=== PATIENT | male | born 1990 | race Caucasian/White ===

== ENCOUNTER 2019-07-22 04:24 | Emergency (ER) | payer OTHER ==
[2019-07-22 05:29] LABS: Absolute Lymphocytes (CBC) 1.2 K/uL (0.7-4.9); Basophils % 0.2 % (0-1.3); Hematocrit 40.5 % (39.6-49.0); MPV 9.4 fL (7.6-11.3); RBC Red Blood Cell Count 4.48 M/uL (4.33-5.43)
[2019-07-22 05:33] LABS: Protime INR 1.03
[2019-07-22 05:48] LABS: ALT/SGPT 62 U/L (12-78); AST/SGOT 28 U/L (15-37); Albumin 4.2 g/dL (3.4-5.0); Alkaline Phosphatase 72 U/L (45-117); BUN Blood Urea Nitrogen 14 mg/dL (7-18); Bicarbonate 27 mmol/L (21-32); Bilirubin Direct < 0.1 mg/dL (0-0.2); Bilirubin Total 0.3 mg/dL (0.2-1.0); CKMB Creatine Kinase MB 1.8 ng/mL (0.3-3.6); Creatine Phosphokinase 185 U/L (39-308); Glucose Level 91 mg/dL (74-106); Lipase 137 U/L (73-393); Magnesium 2.4 mg/dL (1.8-2.4); Potassium 4.2 mmol/L (3.5-5.1); Protein, Total 7.2 g/dL (6.4-8.2); Sodium Level 139 mmol/L (136-145)
[2019-07-22] MEDS ORDERED: LIDOCAINE 1% MPF 5 ML VIAL ONE (06:28)
[2019-07-22] MEDS ORDERED: IBUPROFEN 400 MG TAB ONE (06:51)
--- NOTE | 2019-07-22 06:57 | ER ---
Nurse's Notes [facility] Name: Tay Forbes Age: 29 yrs Sex: Male : 1990 Arrival Date: 07/22/2019 Time: 04:25 Bed 7 Private MD: Diagnosis: Seizure;Chin Laceration Presentation: 07/22 04:25 Presenting complaint: EMS states: pt had witnessed seizure while walking. pt with lac ak1 under his chin, no bleeding noted. pt A\T\OX4 at this time. pt ambulated to EMS stretcher. pt with hx of seizures, does not take medications for seizures. EMS FSBG 126. Transition of care: patient was not received from another setting of care. Onset of symptoms was July 22, 2019. Risk Assessment: Do you want to hurt yourself or someone else? Patient reports no desire to harm self or others. Initial Sepsis Screen: Does the patient meet any 2 criteria? No. Patient's initial sepsis screen is negative. Does the patient have a suspected source of infection? No. Patient's initial sepsis screen is negative. Care prior to arrival: None. 04:25 Method Of Arrival: EMS: [facility] ak1 04:25 Acuity: BLADIMIR 3 ak1 Triage Assessment: 04:28 General: Appears in no apparent distress. Behavior is calm, cooperative. Pain: Denies ak1 pain. EENT: No signs and/or symptoms were reported regarding the EENT system. Neuro: Level of Consciousness is awake, alert, obeys commands, Oriented to person, place, time, situation, Appropriate for age Moves all extremities. Cardiovascular: No deficits noted. Respiratory: Airway is patent Respiratory effort is even, unlabored, Respiratory pattern is regular. GI: No signs and/or symptoms were reported involving the gastrointestinal system. : No signs and/or symptoms were reported regarding the genitourinary system. Derm: Wound noted submental area. Musculoskeletal: No signs and/or symptoms reported regarding the musculoskeletal system. Historical: - Allergies: 04:28 No Known Allergies; ak1 - Home Meds: 04:28 None [Active]; ak1 - PMHx: 04:28 Seizures; ak1 - PSHx: 04:28 left hand sx; ak1 - Immunization history:: Adult Immunizations unknown. - Social history:: Smoking status: Patient/guardian denies using tobacco. - Ebola Screening: : No symptoms or risks identified at this time. Screenin:29 Abuse screen: Denies threats or abuse. Denies injuries from another. Nutritional ak1 screening: No deficits noted. Tuberculosis screening: No symptoms or risk factors identified. Fall Risk None identified. Assessment: 04:30 Reassessment: Patient appears in no apparent distress at this time. No changes from ak1 previously documented assessment. Patient and/or family updated on plan of care and expected duration. Pain level reassessed. Patient is alert, oriented x 3, equal unlabored respirations, skin warm/dry/pink. see triage assessment. General: Appears in no apparent distress. Behavior is calm, cooperative. 05:22 Reassessment: Patient appears in no apparent distress at this time. No changes from ak1 previously documented assessment. Patient and/or family updated on plan of care and expected duration. Pain level reassessed. Patient is alert, oriented x 3, equal unlabored respirations, skin warm/dry/pink. 06:38 Reassessment: Patient appears in no apparent distress at this time. Patient and/or ak1 family updated on plan of care and expected duration. Pain level reassessed. Patient is alert, oriented x 3, equal unlabored respirations, skin warm/dry/pink. no seizure activity noted while in ER7. Vital Signs: 04:28 BP 116 / 84; Pulse 88; Resp 16; Temp 97.0(TE); Pulse Ox 98% on R/A; Weight 86.18 kg ak1 (R); Height 6 ft. 0 in. (182.88 cm) (R); Pain 0/10; 06:40 BP 119 / 81; Pulse 79; Resp 20; Temp 97.6(TE); Pulse Ox 98% on R/A; Pain 0/10; ak1 04:28 Body Mass Index 25.77 (86.18 kg, 182.88 cm) ak1 [place] Coma Score: 04:28 Eye Response: spontaneous(4). Verbal Response: oriented(5). Motor Response: obeys ak1 commands(6). Total: 15. ED Course: 04:25 Patient arrived in ED. ak1 04:27 Triage completed. ak1 04:28 Arm band placed on Patient placed in an exam room, on a stretcher, on pulse oximetry, ak1 Patient notified of wait time. 04:29 Patient has correct armband on for positive identification. Bed in low position. Call ak1 light in reach. Side rails up X2. Seizure precautions initiated. Pulse ox on. NIBP on. 04:29 Maintain EMS IV. Dressing intact. Site clean \T\ dry. Gauge \T\ site: 20g left hand. ak 1 04:30 Isaura Lawson, ELIZABETH is Primary Nurse. ak1 04:31 Aren Palmer MD is Attending Physician. tw4 05:03 CT Head Brain wo Cont In Process Unspecified. EDMS 06:39 Assist provider with laceration repair on submental area using sutures. Set up tray. ak1 Patient tolerated well. 06:55 Td Pablo MD is Referral Physician. [facility] 06:59 IV discontinued, intact, bleeding controlled, No redness/swelling at site. Pressure ak1 dressing applied. Administered Medications: 06:38 Drug: Lidocaine (1 %) 5 mg {Note: at the bedside for provider to use.} Route: ak1 Infiltration; 06:53 Drug: Ibuprofen 800 mg Route: PO; ak1 06:53 Follow up: Response: No adverse reaction ak1 Outcome: 06:55 Discharge ordered by . [facility] 06:58 Discharged to [employer] ak1 06:58 Condition: good 06:58 Discharge instructions given to [facility] Instructed on discharge instructions, follow up and referral plans. wound care, Demonstrated understanding of wound care. 07:05 Patient left the ED. ak1 Signatures: Dispatcher [employer] EDMS Sheldon Aguilar PA PA jmm Krenek, Amber, ELIZABETH RN ak1 Aren Palmer MD MD tw4
--- NOTE | 2019-07-22 06:58 | EDPHYS ---
Physician Documentation [facility] Name: Tay Forbes Age: 29 yrs Sex: Male : 1990 Arrival Date: 07/22/2019 Time: 04:25 Bed 7 Private MD: ED Physician Aren Palmer HPI: 07/22 05:09 This 29 yrs old Male presents to ER via EMS with complaints of Seizure, tw4 Laceration To Chin. 05:09 The patient presents after having a single isolated seizure, that lasted an unknown tw4 period of time. Character of seizure(s): Loss of consciousness: the patient experienced loss of consciousness, Motor activity: generalized, shaking all over. Seizure onset: just prior to arrival. Context: the seizure(s) was witnessed, correctional officers. Seizure Hx: the patient has no previous seizure history. The patient has not experienced similar symptoms in the past. Historical: - Allergies: 04:28 No Known Allergies; ak1 - Home Meds: 04:28 None [Active]; ak1 - PMHx: 04:28 Seizures; ak1 - PSHx: 04:28 left hand sx; ak1 - Immunization history:: Adult Immunizations unknown. - Social history:: Smoking status: Patient/guardian denies using tobacco. - Ebola Screening: : No symptoms or risks identified at this time. ROS: 05:09 Constitutional: Negative for fever, chills, and weight loss, Eyes: Negative for injury, tw4 pain, redness, and discharge, Cardiovascular: Negative for chest pain, palpitations, and edema, Respiratory: Negative for shortness of breath, cough, wheezing, and pleuritic chest pain, Abdomen/GI: Negative for abdominal pain, nausea, vomiting, diarrhea, and constipation, Back: Negative for injury and pain, MS/Extremity: Negative for injury and deformity, Skin: Negative for injury, rash, and discoloration, Neuro: Negative for headache, weakness, numbness, tingling, and seizure. Exam: 05:09 Chest/axilla: Normal chest wall appearance and motion. Nontender with no deformity. tw4 No lesions are appreciated. Cardiovascular: Regular rate and rhythm with a normal S1 and S2. No gallops, murmurs, or rubs. Normal PMI, no JVD. No pulse deficits. Respiratory: Lungs have equal breath sounds bilaterally, clear to auscultation and percussion. No rales, rhonchi or wheezes noted. No increased work of breathing, no retractions or nasal flaring. Abdomen/GI: Soft, non-tender, with normal bowel sounds. No distension or tympany. No guarding or rebound. No evidence of tenderness throughout. Back: No spinal tenderness. No costovertebral tenderness. Full range of motion. MS/ Extremity: Pulses equal, no cyanosis. Neurovascular intact. Full, normal range of motion. Neuro: Awake and alert, GCS 15, oriented to person, place, time, and situation. Cranial nerves II-XII grossly intact. Motor strength 5/5 in all extremities. Sensory grossly intact. Cerebellar exam normal. Normal gait. 05:09 Head/face: Noted is a laceration(s), that is linear, 3 cm(s). Vital Signs: 04:28 BP 116 / 84; Pulse 88; Resp 16; Temp 97.0(TE); Pulse Ox 98% on R/A; Weight 86.18 kg ak1 (R); Height 6 ft. 0 in. (182.88 cm) (R); Pain 0/10; 06:40 BP 119 / 81; Pulse 79; Resp 20; Temp 97.6(TE); Pulse Ox 98% on R/A; Pain 0/10; ak1 04:28 Body Mass Index 25.77 (86.18 kg, 182.88 cm) ak1 [place] Coma Score: 04:28 Eye Response: spontaneous(4). Verbal Response: oriented(5). Motor Response: obeys ak1 commands(6). Total: 15. Laceration: 06:50 Wound Repair of 3cm ( 1.2in ) subcutaneous laceration to submental area. Distal jmm neuro/vascular/tendon intact. Anesthesia: Local anesthetic administered with 2.5 mls of 1% lidocaine. Wound prep: Simple cleansing with betadine by me. Skin closed with 4 5-0 Prolene using simple sutures and sterile technique. Patient tolerated well. MDM: 04:31 Patient medically screened. tw4 06:53 Data reviewed: vital signs, nurses notes. Counseling: I had a detailed discussion with [facility] the patient and/or guardian regarding: the historical points, exam findings, and any diagnostic results supporting the discharge/admit diagnosis, lab results, radiology results, the need for outpatient follow up, to return to the emergency department if symptoms worsen or persist or if there are any questions or concerns that arise at home. ED course: Patient advised to follow up with neuro for reevaluation. Patient given seizure precautions and given wound care instructions along with infection precautions. Patient understood and agrees with the plan of care. . 07/22 04:32 Order name: Basic Metabolic Panel; Complete Time: 06:18 07/22 04:32 Order name: CBC with Diff; Complete Time: 06:18 07/22 04:32 Order name: Ckmb; Complete Time: 06:18 07/22 04:32 Order name: CPK; Complete Time: 06:18 07/22 04:32 Order name: Hepatic Function; Complete Time: 06:18 07/22 04:32 Order name: Lipase; Complete Time: 06:18 07/22 04:32 Order name: CT Head Brain wo Cont 07/22 04:32 Order name: Magnesium; Complete Time: 06:18 07/22 04:32 Order name: Protime (+inr); Complete Time: 06:18 07/22 04:32 Order name: Ptt, Activated; Complete Time: 06:18 07/22 04:32 Order name: Cardiac monitoring; Complete Time: 05:22 07/22 04:32 Order name: IV Saline Lock; Complete Time: 04:55 07/22 04:32 Order name: Labs collected and sent; Complete Time: 05:22 07/22 04:32 Order name: NPO; Complete Time: 04:44 07/22 04:32 Order name: O2 Per Protocol; Complete Time: 04:44 07/22 04:32 Order name: O2 Sat Monitoring; Complete Time: 04:44 tw4 EC:22 Rate is 83 beats/min. Rhythm is regular, Normal Sinus Rhythm. QRS [place] is Normal. [place] tw4 interval is normal. QRS interval is normal. No Q waves. T waves are Normal. No ST changes noted. Clinical impression: Normal ECG. Interpreted by me. Reviewed by me. Administered Medications: 06:38 Drug: Lidocaine (1 %) 5 mg {Note: at the bedside for provider to use.} Route: ak1 Infiltration; 06:53 Drug: Ibuprofen 800 mg Route: PO; ak1 06:53 Follow up: Response: No adverse reaction ak1 Disposition: 07/22/19 06:55 Discharged to Home. Impression: Seizure, Chin Laceration. - Condition is Stable. - Discharge Instructions: Facial Laceration, Seizure, Adult. - Medication Reconciliation Form, Thank You Letter, Antibiotic Education, Prescription Opioid Use form. - Follow up: Td Pablo MD; When: 2 - 3 days; Reason: Recheck today's complaints, Continuance of care, Re-evaluation by your physician. Signatures: Dispatcher [employer] EDMS Sheldon Aguilar PA PA jmm Krenek, Amber, RN RN ak1 Aren Palmer MD MD tw4 Corrections: (The following items were deleted from the chart) 07:04 04:32 Urine Dipstick-Ancillary ordered. tw4 ak1 07:05 06:55 07/22/2019 06:55 Discharged to Home. Impression: Seizure; Chin Laceration. ak1 Condition is Stable. Forms are Medication Reconciliation Form, Thank You Letter, Antibiotic Education, Prescription Opioid Use. Follow up: Td Pablo; When: 2 - 3 days; Reason: Recheck today's complaints, Continuance of care, Re-evaluation by your physician. taurus
[2019-07-22 07:11] VITALS: O2SAT 98
[2019-07-22 07:12] VITALS: BP 119/81; TEMP 97.6
--- NOTE | 2019-07-22 09:56 | RAD REPORT ---
EXAM DESCRIPTION: CT of the head without contrast CLINICAL HISTORY: SEIZURE COMPARISON: None available TECHNIQUE: Axial CT of the head obtained from the skull apex to the skull base without contrast. FINDINGS: No acute intracranial hemorrhage identified. No mass, mass effect, shift of the midline, a bnormal extra-axial fluid collection or CT evidence of acute ischemic change identified. The ventricu lar system is unremarkable. No acute abnormalities of the supratentorial white matter, basal gangli a, cerebellum, or brainstem. The visualized paranasal sinuses and the mastoids are clear. No skull fracture identified. Visualized orbits and globes are unremarkable. DLP: 27.5 mGy-cm IMPRESSION: 1. No acute intracranial abnormality identified. This exam was performed according to our departmental dose-optimization program, which includes autom ated exposure control, adjustment of the mA and/or kV according to patient size and/or use of iterati ve reconstruction technique. Electronically signed by: Theo Vega 07/22/2019 5:36 AM CDT Due to temporary technical issues with the PACS/Fluency reporting system, reports are being signed by the in house radiologist as a courtesy to ensure prompt reporting. The interpreting radiologist is f ully responsible for the content of the report.
--- NOTE | 2019-07-22 13:35 | EKG ---
Test Date: 2019-07-22 Test Time: 05:12:57 [employer] Worker: RON MEASUREMENT RESULTS: Intervals: Rate: 83 UT: 160 QRSD: 82 QT: 352 QTc: 413 [place]: P: 43 UT: 160 QRS: 45 T: 55 INTERPRETIVE STATEMENTS: Normal sinus rhythm Normal ECG No previous ECG available for comparison Electronically Signed On 07-22-19 13:34:26 CDT by Newton Huitron
== END 2019-07-22 07:05 | disposition home or self-care (01) ==
LOC: ER 04:24
PROC: 0JQ10ZZ Repair Face Subcutaneous Tissue and Fascia, Open Approach (ICD-10-PCS; principal; 2019-07-22)
DX: S01.81XA Laceration without foreign body of other part of head, initial encounter (principal); X58.XXXA Exposure to other specified factors, initial encounter; Y93.9 Activity, unspecified; Y92.149 Unspecified place in prison as the place of occurrence of the external cause
CPT/HCPCS: 36415; 70450; 80048; 80076; 82550; 82553; 83690; 83735; 85025; 85610; 85730; 93005; 99284